=== PATIENT | male | born 1985 | race Asian ===

== ENCOUNTER 2023-01-06 10:13 | Emergency (ER) | payer OTHER ==
[~2023-01-06] VITALS: Ht 170.2 cm; Wt 73.5 kg
[2023-01-06 10:13] VITALS: BP_SYST 126
--- NOTE | 2023-01-06 10:15 | NUR ---
BROUGHT BACK TO BED #4 AND TRIAGED. REPORT GIVEN TO BORA
--- NOTE | 2023-01-06 10:23 | NUR ---
Patient to ER bed 04 to gown for evaluation. Side rails up.
--- NOTE | 2023-01-06 10:27 | NUR ---
DR ABEBE IN ROOM
[2023-01-06] MEDS ORDERED: IBUP-1969 PO (10:29)
[2023-01-06] MEDS ORDERED: ACETAMINOPHEN 500 MG TABLET PO ONE (10:30)
[2023-01-06] MEDS ORDERED: KETOROLAC TROMETHAMINE 60 MG/2 ML VIAL IM ONE (10:30)
[2023-01-06] MEDS ORDERED: ACETAMINOPHEN 500 MG TABLET ONE (10:31)
--- NOTE | 2023-01-06 10:43 | NUR ---
COVID AND FLU SWABBED AND SENT TO LAB
--- NOTE | 2023-01-06 11:34 | NUR ---
NO ACUTE CHNAGESIN CONDITION, PT IN NAD.
--- NOTE | 2023-01-06 11:51 | NUR ---
Patient given written and verbal discharge instructions and verbalizes understanding. ER MD discussed with patient the results and treatment provided. Patient in stable condition. ID arm band removed.
== END 2023-01-06 11:51 | disposition home or self-care (01) ==
LOC: SED 10:13
DX: B34.9 Viral infection, unspecified (principal); R50.9 Fever, unspecified; M79.10 Myalgia, unspecified site; Z79.899 Other long term (current) drug therapy; Z20.822 Contact with and (suspected) exposure to COVID-19
CPT/HCPCS: 99283; 87426; 36415; 96372; 87804 ×2; J1885